=== PATIENT | male | born 1990 | race Caucasian/White ===

== ENCOUNTER 2022-02-28 21:02 | Emergency (ER) | payer OTHER, SELFPAY ==
[2022-02-28 21:18] VITALS: BP 111/64; PULSE 73; RESP 16; TEMP 36.6; O2SAT 96; BMI 29.0
--- NOTE | 2022-02-28 21:36 | ED_ITS ---
HPI - Animal Bite General Chief Complaint: Animal Bite Stated Complaint: Scratched by bat on right shoulder Time Seen by Provider: 02/28/22 21:28 History of Present Illness HPI narrative: Patient is a healthy 31-year-old gentleman who was bit on the right shoulder by a bat this evening. Patient entered his garage in a bat fell from the [place] was startled. He did have the bat land on his right shoulder. Looks like there are small puncture sites x2 anteriorly. The bat was then in the patient's sure but did not appear to bite again. Patient believes that the bat is still in his garage. Patient has had no previous exposure to rabies. Related Data Home Medications Medication Instructions Recorded Confirmed triamcinolone acetonide 0.1 % applic topical 02/28/22 topical cream Allergies Allergy/AdvReac Type Severity Reaction Status Date / Time No Known Drug Allergies Allergy Verified 02/28/22 21:21 Review of Systems Status of ROS: Reports: 10 or more systems reviewed and unremarkable except as noted in History and below PFSH PFS Social History Smoking Status: Current every day smoker How often do you have a drink containing alcohol: never AUDIT-C Alcohol total score: 0 Non-prescribed substance use: denies use Exam Narrative: Exam Narrative: EXAM GENERAL: Patient appears comfortable and well. EYES: No scleral icterus. LYMPH: No supraclavicular or cervical lymphadenopathy. SKIN: 2 very small puncture sites on the right anterior shoulder. No surrounding erythema. EXT: No dependent lower extremity pedal edema. HEART: Regular rate and rhythm with no murmurs, rubs, or gallops. LUNGS: Clear to auscultation bilaterally with no crackles or wheezes. ABD: Soft, non tender, non distended. PSYCH: Good eye contact, speech is not pressured. Const: Vital Signs, click to edit/add: Vital Signs - 24 hr 02/28/22 21:18 Temperature 97.8 F Pulse Rate [Left P ulse Oximeter] 73 Respiratory Rate 16 Blood Pressure [Ri ght Upper Arm] 111/64 Pulse Oximetry 96 Oxygen Delivery Me thod Room Air Course Course Hospital Course: Reviewed up-to-date recommending cleaning the wound a rabies immunoglobulin beginning of the vaccination for rabies at days 09/26/2013 and updating TD AP. Will also try to capture the bat. Vital Signs Vital signs: Initial Vital Signs Temperature 97.8 F 02/28/22 21:18 Temperature Source Temporal Artery Scan 02/28/22 21:18 Pulse Rate 73 02/28/22 21:18 Respiratory Rate 16 02/28/22 21:18 Blood Pressure 111/64 02/28/22 21:18 Blood Pressure Mean 79 02/28/22 21:18 Blood Pressure Position Sitting 02/28/22 21:18 Pulse Oximetry 96 02/28/22 21:18 Oxygen Delivery Method 02/28/22 21:18 Vital Signs Temperature 97.8 F 02/28/22 21:18 Pulse Rate 73 02/28/22 21:18 Respiratory Rate 16 02/28/22 21:18 Blood Pressure 111/64 02/28/22 21:18 Pulse Oximetry 96 02/28/22 21:18 Oxygen Delivery Method 02/28/22 21:18 Temperature 97.8 F 02/28/22 21:18 Pulse Rate 73 02/28/22 21:18 Respiratory Rate 16 02/28/22 21:18 Blood Pressure 111/64 02/28/22 21:18 Pulse Oximetry 96 02/28/22 21:18 Oxygen Delivery Method 02/28/22 21:18 Discharge Plan Discharge Clinical Impression: Rabies contact Patient Disposition: Home, Self-Care Condition: Stable Instructions: Rabies Vaccine (By injection), Rabies Immune Globulin (By injection) Additional Instructions: Vaccinations day 3, 7 and 14 Capture bat and bring to [facility] Activity Level: No Restrictions Discharge Diet: Regular Prescriptions: No Action triamcinolone acetonide 0.1 % cream TOPICAL Label Comments: APPLY TOPICALLY TWICE A DAY Follow Up/Referrals: Joie Carrera MD [Primary Care Provider] - Stand Alone Forms: MyHealth Info Instructions
[2022-02-28] MEDS: TETANUS/DIPHTH/PERTUSSIS 0.5 ML SYRINGE IM (22:41)
[2022-02-28] MEDS: RABIES IMMUNE GLOBULIN 150 UNIT/ML INJ 1995 UNIT INFILTRATI (23:02)
[2022-02-28 23:10] VITALS: PULSE 65; RESP 18
== END 2022-02-28 23:17 | disposition home or self-care (01) ==
PROVIDERS: Emergency Provider Internal Medicine
DX: S41.051A Open bite of right shoulder, initial encounter (principal); W55.81XA Bitten by other mammals, initial encounter
CPT/HCPCS: 90377; 90471; 90472; 90675; 90715; 96372; 99283

== ENCOUNTER 2022-03-14 13:47 | Outpatient (RCR) | payer OTHER, SELFPAY ==
[2022-03-03 15:15] VITALS: BP 111/67; PULSE 75; RESP 18; TEMP 35.9; O2SAT 99
[2022-03-07 15:20] VITALS: BP 129/70; PULSE 78; RESP 16; TEMP 36.6; O2SAT 98
[2022-03-07 15:28] VITALS: BP 129/70; PULSE 78; RESP 16; TEMP 36.6; O2SAT 98
[2022-03-14 14:00] VITALS: BP 138/66; PULSE 70; RESP 18; TEMP 36.3; O2SAT 99
== END 2023-02-06 16:35 | disposition home or self-care (01) ==
PROVIDERS: Emergency Provider Family Medicine; Visit Provider Internal Medicine
DX: Z23 Encounter for immunization (principal)
CPT/HCPCS: 80307; 90471; 90675